=== PATIENT | male | born 1965 | race African-American/Black ===

== ENCOUNTER 2017-11-03 06:52 | Day surgery (SDC) | payer OTHER ==
[2017-11-02 12:39] VITALS: BMI 29.8
[2017-11-03 07:55] VITALS: BP 127/82; TEMP 97.6
--- NOTE | 2017-11-03 10:28 | RAD ---
LUMBAR SPINE TWO VIEWS: HISTORY: Status post laminectomy syndrome. COMPARISON: None. FINDINGS: Flexion and extension views of the lumbar spine are submitted for interpretation. There are bilatera l transpedicular screws at L4, L5, and S1. No perihardware lucency. There are prostheses at L4-L5 a nd L5-S1 levels. Vertebral body height is maintained. No significant malalignment or spondylolisthe sis in the flexion or extension views. IMPRESSION: Lumbar fusion changes, as above. POS: [facility]
--- NOTE | 2017-11-03 11:13 | RAD ---
LUMBAR MYELOGRAM: HISTORY: Status post laminectomy syndrome. COMPARISON: None. EXPOSURE: 0.6 minutes. 438.4 mGy*^m2. FINDINGS: Two-view mounter lumbar spine radiograph demonstrates 5 lumbar-type vertebral bodies. Bilateral transp edicular screws at L4, L5, and S1. No perihardware lucency. Prosthesis at L4-5 and L5-S1. No signi ficant spondylolisthesis. Successful lumbar puncture for intrathecal contrast administration. A total of 10 cc of Isovue 200M contrast was administered intrathecally. The patient tolerated the procedure well. No immediate or postprocedure complications. TECHNIQUE: Consent was obtained for a lumbar puncture for intrathecal contrast administration. The patient's ba ck was evaluated. The L3-L4 level was deemed appropriate. The skin was prepped and draped in steril e fashion. 1% Lidocaine, buffered with sodium bicarbonate, was used for local anesthesia. Under flu oroscopic guidance, a 22-gauge spinal needle was advanced into the CSF space. Via a short tubing cat heter, a total of 10 cc of Isovue 200M contrast was administered intrathecally. The patient tolerate d the procedure well. No immediate or postprocedure complications. IMPRESSION: Successful lumbar puncture for intrathecal contrast administration. POS: [facility]
--- NOTE | 2017-11-03 11:32 | CT ---
POST MYELOGRAM LUMBAR SPINE CT: HISTORY: Post laminectomy syndrome. COMPARISON: None. TECHNIQUE: Bilateral transpedicular screws at L4, L5, and S1. Disk prostheses at L4-L5 and at L5-S1. Vertebral body height is maintained. No fracture. No spondylolisthesis. No spondylolysis. Symmetric attenuation of the psoas muscles. The visualized solid organs have appropriate attenuation . No retroperitoneal mass, lymphadenopathy, or hematoma. The conus medullaris terminates at the inferior aspect of L1. On the coronal reformatted images, the sinus processes and transverse processes are intact. Bone gra ft material is noted at the level of lumbar fusion. T11-T12/T12-L1: No significant central canal stenosis. The neural foramina are patent. L1-L2: No significant central canal stenosis. The neural foramina are patent. L2-L3: No significant central canal stenosis. The neural foramina are patent. L3-L4: Generalized disk bulge, ligamentum flavum thickening, and facet hypertrophy result in mild ce ntral canal stenosis. Moderate bilateral foraminal narrowing due to disk material and posterior united keetoowah ent hypertrophy. L4-L5: Disk prosthesis. There appears to be a left-sided facetectomy. There is no high grade centr al canal stenosis. Mild bilateral foraminal narrowing. L5-S1: There is a disk prosthesis. A left facetectomy is noted. There is abnormal hypodensity, pre sumed to be soft tissue attenuation, in the right subarticular zone, which abuts and slightly displac es the traversing right S1 nerve root. Findings may represent residual disk material versus scar tis irais. The left subarticular zone is unremarkable. There is no significant stenosis of the thecal sac . There is some mass effect upon the posterior left thecal sac, which may be due to postoperative ch yaniv. The right neural foramen is patent. Moderate left foraminal narrowing. IMPRESSION: Postoperative changes and post fusion changes, as described above. There is some mass effect upon th e traversing right S1 nerve root. Findings may be due to disk material versus scar tissue. POS: [facility]
[2017-11-03] MEDS ORDERED: Iopamidol-M 200 41% 20 ML VIAL ONE (13:43)
== END 2017-11-03 10:10 | disposition home or self-care (01) ==
LOC: RAD 06:52
PROVIDERS: ATTEND Nurse Practitioner Family
PROC: B02BY0Z Computerized Tomography (CT Scan) of Spinal Cord using Other Contrast, Unenhanced and Enhanced (ICD-10-PCS; principal; 2017-11-03)
DX: M96.1 Postlaminectomy syndrome, not elsewhere classified (principal); M54.16 Radiculopathy, lumbar region; M99.83 Other biomechanical lesions of lumbar region; Z98.890 Other specified postprocedural states
CPT/HCPCS: 62304; 72100; 72132

== ENCOUNTER 2017-12-19 02:28 | Emergency (ER) | payer OTHER ==
[2017-12-19] MEDS ORDERED: Ketorolac Tromethamine 30 MG/ML VIAL ONE (06:41)
[2017-12-19] MEDS ORDERED: diphenhydrAMINE 50 MG/ML VIAL ONE (06:41)
[2017-12-19] MEDS ORDERED: Metoclopramide HCl 10 MG/2 ML VIAL ONE (06:41)
[2017-12-19] MEDS ORDERED: Acetaminophen 500 MG TAB ONE (06:41)
[2017-12-19 06:46] LABS: #Basophils 0.1 thou/uL (0.0-0.2); #Eosinphils 0.1 thou/uL (0.0-0.7); #Lymphocytes 2.3 thou/uL (1.20-3.40); #Monocytes 0.7 thou/uL (0.11-0.59); #Neutrophils 6.8 thou/uL (1.40-6.50); %Basophils 0.8 % (0.0-1.0); %Eosinophils 0.6 % (0.0-10.0); %Monocytes 7.1 % (0.0-10.0); %Neutrophils 68.4 % (42.0-75.0); Hemoglobin 17.9 g/dL (14.0-18.0); Mean Corpuscular HGB CONC 33.3 g/dL (32.0-36.0); Mean Corpuscular Hemoglobin 29.7 pg (27.0-31.0); Mean Corpuscular Volume 89.2 fL (78.0-98.0); Mean Platelet Volume 6.8 fL (7.4-10.4); Platelet Count 229 thou/uL (130-400); Red Blood Cell (RBC) Count 6.01 mill/uL (4.70-6.10)
[2017-12-19 06:55] LABS: INR-International Normal Ratio 0.9; Prothrombin Time 12.6 SEC (12.0-14.7)
[2017-12-19 07:03] LABS: Anion Gap 14 mmol/L (10-20); BUN (Urea Nitrogen) 15 mg/dL (8.9-20.6); Calc. Creatinine Clearance 0 mL/min (70-130); Calcium 9.8 mg/dL (7.8-10.44); Carbon Dioxide 25 mmol/L (22-29); Chloride 102 mmol/L (98-107); Estimated GFR-MDRD Greater than 90; Glucose 109 mg/dL (70-105); Potassium 4.1 mmol/L (3.5-5.1); Sodium 137 mmol/L (136-145)
--- NOTE | 2017-12-19 12:52 | CT ---
PRELIMINARY REPORT/[facility]/EMERGENTY AFTER-HOURS PROCEDURE CT Head Without Intravenous Contrast CLINICAL HISTORY: 52 years old, male; Pain; Headache; Headache not specified; Patient HX: M50 reports to ed C/O migrain e. Pt reported getting lumbar injections on 12/15/2017 and the gradually started to get the migraine. Pt reports the pain is on the sides and worse on the crown of his scalp, was tender to touch pt reported. Pt reports getting headaches or sick often. TECHNIQUE: Axial computed tomography images of the head/brain without intravenous contrast. COMPARISON: No relevant prior studies available. FINDINGS: Normal brain morphology. Baird-white matter differentiation is preserved. No intracranial hemorrhage or hydrocephalus. No mass, mass effect or midline shift. No effacement of the cortical sulci and basal cisterns. Orbits are unremarkable. Paranasal sinuses are clear. Mastoid air cells are clear. No acute fracture. Soft tissues unremarkable. IMPRESSION: No acute intracranial abnormality. Thank you for allowing us to participate in the care of your patient. Dictated and Authenticated by: Raman Patrick MD 12/19/2017 7:08 AM Central Time ([place] & [place]) FINAL REPORT EMERGENCY AFTER HOURS CT BRAIN: Date: 12/19/17 IMPRESSION: I agree with the preliminary interpretation given by Chhaya. No evidence for intracranial hemorrhage or mass effect. POS: [facility]
== END 2017-12-19 09:20 | disposition home or self-care (01) ==
LOC: ERS 02:28
DX: R51 Headache (principal); Z79.899 Other long term (current) drug therapy
CPT/HCPCS: 70450; 80048; 85025; 85610; 85652; 85730; 96365; 96366; 96375; J1200; J1885; J2765

== ENCOUNTER 2018-04-20 09:00 | Inpatient (IN) | payer OTHER ==
[2018-04-20 09:27] VITALS: BMI 28.8
[2018-05-09] MEDS ORDERED: CEFAZOLIN 2 GM/50 ML BAG ONE (13:04)
[2018-05-09] MEDS ORDERED: Fentanyl 100 MCG/2 ML VIAL ONE ×3 (13:53→16:52)
[2018-05-09] MEDS ORDERED: Midazolam HCl 2 mg/2 ml Vial ONE (13:53)
[2018-05-09] MEDS ORDERED: Sodium Chloride 0.9% 10 ML ONE (14:03)
[2018-05-09] MEDS ORDERED: PROPOFOL 200 MG/20 ML VIAL ONE (14:22)
[2018-05-09] MEDS ORDERED: Dexamethasone 20 MG/5 ML VIAL ONE (14:22)
[2018-05-09] MEDS ORDERED: Glycopyrrolate 0.2 MG/ML 5 ML SYRINGE ONE (14:22)
[2018-05-09] MEDS ORDERED: Lidocaine 1% PF 5 ML VIAL ONE (14:22)
[2018-05-09] MEDS ORDERED: Ketorolac Tromethamine 30 MG/ML VIAL ONE (14:22)
[2018-05-09] MEDS ORDERED: Ondansetron PF 4 MG/2 ML Vial ONE (14:22)
[2018-05-09] MEDS ORDERED: diphenhydrAMINE 50 MG/ML VIAL IVP PRN (16:31)
[2018-05-09] MEDS ORDERED: tiZANidine HCl 4 MG TAB PO PRN (16:31)
[2018-05-09] MEDS ORDERED: Morphine 4 MG/ML VIAL SLOW IVP PRN (16:31)
[2018-05-09] MEDS ORDERED: Ondansetron PF 4 MG/2 ML Vial IM PRN (16:31)
[2018-05-09] MEDS ORDERED: Mag-Al 1200 mg/1200 mg/30 ML UDCUP PO PRN (16:31)
[2018-05-09] MEDS ORDERED: Promethazine 25 MG TAB PO PRN (16:31)
[2018-05-09] MEDS ORDERED: Promethazine HCl 12.5 MG SUPP PR PRN (16:31)
[2018-05-09] MEDS ORDERED: Promethazine HCl 25 MG/ML VIAL IM PRN ×2 (16:31→16:57)
[2018-05-09] MEDS ORDERED: traMADol HCl 50 MG TAB PO PRN ×2 (16:31)
[2018-05-09] MEDS ORDERED: HYDROcodone/Acetaminophen 10/325 mg Tablet PO PRN (16:31)
[2018-05-09] MEDS ORDERED: Milk Of Magnesia 30 ML UDCUP PO PRN (16:31)
[2018-05-09] MEDS ORDERED: diphenhydrAMINE 25 MG CAP PO PRN (16:31)
[2018-05-09] MEDS ORDERED: Morphine 2 MG/ML SYRINGE SLOW IVP PRN (16:45)
[2018-05-09] MEDS ORDERED: Promethazine HCl 25 MG/ML VIAL SLOW IVP PRN (16:57)
[2018-05-09] MEDS ORDERED: Ondansetron HCl/PF 4 MG/2 ML Vial IVP PRN (16:57)
[2018-05-09] MEDS: HYDROcodone/Acetaminophen 10/325 mg Tablet PO PRN (20:23)
[2018-05-09] MEDS: Sodium Chloride 0.9% 1,000 ML IV SCH (21:46)
[2018-05-09] MEDS: CEFAZOLIN 2 GM/50 ML BAG IVPB SCH (22:03)
--- NOTE | 2018-05-09 23:00 | OP ---
DATE OF PROCEDURE: 05/09/2018 HYDROGENATION STILL OPERATOR: GIULIA Schulte PROCEDURE PERFORMED: L4 through S1 exploration of fusion, posterolateral arthrodesis, cancellous bone chips, BMP and DESCRIPTION OF PROCEDURE: The patient was brought to the operating room and intubated. He was rolled in the prone position on gel flat chest rolls. The previous incision reopened and the prior fusion was explored. There was no definitive evidence of bony fusion. We prepared the lateral and posterolateral surfaces of the posterolateral arthrodesis bilaterally and then placed a combination of BMP on Gelfoam pledgets with cancellous bone chips over these surfaces for the purpose of future arthrodesis. It was extensively irrigated prior to the placement of the BMP. Vancomycin powder was applied and the wound was then closed in anatomic layers. Job ID: [id number]
[2018-05-10] MEDS: HYDROcodone/Acetaminophen 10/325 mg Tablet PO PRN ×2 (00:23→04:38)
[2018-05-10] MEDS: Sodium Chloride 0.9% 1,000 ML IV SCH (04:41)
[2018-05-10] MEDS: CEFAZOLIN 2 GM/50 ML BAG IVPB SCH (06:15)
[2018-05-10 08:20] VITALS: BP 135/71; TEMP 98.5
--- NOTE | 2018-05-11 05:14 | DIS ---
DATE OF ADMISSION: 05/09/2018 DATE OF DISCHARGE: 05/10/2018 HOSPITAL COURSE: The patient is a 53-year-old male with a history of L4-S1 fusion with nonunion. He underwent revision of lumbar fusion with BNP on 05/09/2018 without complications. Post surgery, he was transitioned to the floor, where his pain was well controlled with p.o. medications, he is tolerating regular diet, and voiding appropriately. He has been ambulatory throughout the department without difficulty. I have seen the patient at the bedside this morning. He is awake and alert, in no acute distress. Free active range of motion of all extremities. No focal motor weakness. No reflex asymmetry. Dressing is dry. We will plan to dismiss the patient to home. I have discussed home care and precautions. The patient has been provided with scripts for [place], Zanaflex, and Keflex. I will follow up with the patient in 2 weeks. Job ID: [id number]
== END 2018-05-10 10:15 | disposition home or self-care (01) | DRG 460 ==
LOC: SURG A 05-09 07:56 → 3SE 05-09 18:31
PROVIDERS: ADMIT Neurological Surgery; ATTEND Neurological Surgery
PROC: 0SG3071 Fusion of Lumbosacral Joint with Autologous Tissue Substitute, Posterior Approach, Posterior Column, Open Approach (ICD-10-PCS; principal; 2018-05-09)
DX: M54.17 Radiculopathy, lumbosacral region (principal); Z79.899 Other long term (current) drug therapy
CPT/HCPCS: 76001; J1100; J1200; J1885; J2001; J2250; J2405; J2704; J3010; J3370; J3490

== ENCOUNTER 2018-04-20 09:06 | Outpatient (CLI) | payer OTHER ==
[2018-04-20 11:06] LABS: #Basophils 0.1 thou/uL (0.0-0.2); #Eosinphils 0.1 thou/uL (0.0-0.7); #Lymphocytes 2.2 thou/uL (1.20-3.40); #Monocytes 0.5 thou/uL (0.11-0.59); #Neutrophils 3.3 thou/uL (1.40-6.50); %Basophils 1.8 % (0.0-1.0); %Eosinophils 1.5 % (0.0-10.0); %Lymphocytes 35.4 % (21.0-51.0); %Monocytes 7.8 % (0.0-10.0); %Neutrophils 53.6 % (42.0-75.0); Hemoglobin 16.4 g/dL (14.0-18.0); Mean Corpuscular HGB CONC 31.6 g/dL (32.0-36.0); Mean Corpuscular Hemoglobin 29.3 pg (27.0-31.0); Mean Corpuscular Volume 92.7 fL (78.0-98.0); Mean Platelet Volume 7.5 fL (7.4-10.4); Platelet Count 260 thou/uL (130-400); RBC Distribution Width 12.3 % (11.5-14.5); Red Blood Cell (RBC) Count 5.58 mill/uL (4.70-6.10); White Blood Cell (WBC) Count 6.1 thou/uL (4.8-10.8)
[2018-04-20 11:23] LABS: Anion Gap 9 mmol/L (10-20); BUN (Urea Nitrogen) 14 mg/dL (8.4-25.7); Calc. Creatinine Clearance 0 mL/min (70-130); Calcium 9.1 mg/dL (7.8-10.44); Carbon Dioxide 28 mmol/L (22-29); Chloride 105 mmol/L (98-107); Estimated GFR-MDRD 83; Glucose 96 mg/dL (70-105); Potassium 4.2 mmol/L (3.5-5.1); Sodium 138 mmol/L (136-145)
--- NOTE | 2018-04-23 10:29 | EKG ---
Test Reason : Blood Pressure : / mmHG Vent. Rate : 057 BPM Atrial Rate : 057 BPM P-R Int : 154 ms QRS Dur : 090 ms QT Int : 402 ms P-R-T Axes : 049 118 047 degrees QTc Int : 391 ms Sinus bradycardia Right axis deviation Abnormal ECG No previous ECGs available Confirmed by DR. Leny DEJESUS ([id number]) on 04/23/2018 10:29:09 AM Referred By: ARIE Confirmed By:DR. Leny DEJESUS
== END 2018-04-20 09:07 | disposition home or self-care (01) ==
LOC: LABBT 09:06
PROVIDERS: ATTEND Neurological Surgery
DX: Z01.812 Encounter for preprocedural laboratory examination (principal); M54.16 Radiculopathy, lumbar region
CPT/HCPCS: 80048; 85025; 93005; 93010

== ENCOUNTER 2018-05-24 15:53 | Outpatient (CLI) | payer OTHER ==
--- NOTE | 2018-05-24 17:21 | RAD ---
LUMBAR SPINE THREE VIEWS: HISTORY: M54.16, lumbar spine pain. COMPARISON: Spine radiograph from 11/03/2017. FINDINGS: Similar appearance with posterior spinal fusion hardware at L4-S1 with diskectomy changes. There are surgical megan along the midline abdomen. No acute superimposed fracture or malalignment. The paraspinal soft tissues are unremarkable. IMPRESSION: Satisfactory postoperative appearance. No hardware migration. POS: [facility]
== END 2018-05-24 15:54 | disposition home or self-care (01) ==
LOC: TBSIIMAG 15:53
PROVIDERS: ATTEND Neurological Surgery
DX: M54.16 Radiculopathy, lumbar region (principal); Z98.1 Arthrodesis status
CPT/HCPCS: 72100

== ENCOUNTER 2018-07-06 13:39 | Outpatient (CLI) | payer OTHER ==
--- NOTE | 2018-07-06 14:29 | RAD ---
LUMBAR SPINE SERIES TWO VIEWS: History: Low back pain. Post op. Comparison: 05-24-18 FINDINGS: Bilateral pedicle screws are noted at the L4, L5 and S1 levels. Markers of disc implants are within t he confines of the disc levels. IMPRESSION: Stable post op change. POS: [facility]
== END 2018-07-06 13:40 | disposition home or self-care (01) ==
LOC: TBSIIMAG 13:39
PROVIDERS: ATTEND Neurological Surgery
DX: M54.5 Low back pain (principal); Z98.890 Other specified postprocedural states
CPT/HCPCS: 72100

== ENCOUNTER 2018-09-01 12:58 | Outpatient (CLI) | payer OTHER ==
--- NOTE | 2018-09-01 13:36 | RAD ---
LUMBAR SPINE TWO VIEWS: History: Lumbar radiculopathy. Post op follow up. Comparison: 07-06-18 FINDINGS: Pedicles screws and rods again noted transfixing L4 at L5 and S1. Interbody implants at these levels again noted. The hardware and implants are unchanged in position from prior study. Posterior alignmen t is preserved and unchanged. IMPRESSION: Post-operative findings appear stable. POS: [facility]
== END 2018-09-01 12:59 | disposition home or self-care (01) ==
LOC: TBSIIMAG 12:58
PROVIDERS: ATTEND Neurological Surgery
DX: M54.16 Radiculopathy, lumbar region (principal); Z98.890 Other specified postprocedural states
CPT/HCPCS: 72100

== ENCOUNTER 2018-10-26 11:27 | Day surgery (SDC) | payer OTHER ==
[2018-10-25 10:48] VITALS: BMI 29.2
[2018-10-26] MEDS ORDERED: Glycopyrrolate 0.2 MG/ML 5 ML SYRINGE ONE (14:48)
[2018-10-26] MEDS ORDERED: diphenhydrAMINE 50 MG/ML VIAL ONE (14:56)
--- NOTE | 2018-10-26 15:20 | RAD ---
PORTABLE CHEST ONE VIEW: 10/26/2018 2:59 p.m. HISTORY: Aspiration. FINDINGS: The heart size is normal. The lungs are well expanded without focal areas of consolidation, pneumoth orax, drew pulmonary edema, or pleural effusions. IMPRESSION: No acute process. POS: [facility]
[2018-10-26] MEDS ORDERED: PROPOFOL 200 MG/20 ML VIAL ONE (15:23)
--- NOTE | 2018-10-26 21:30 | OP ---
DATE OF PROCEDURE: 10/26/2018 PROCEDURE PERFORMED: Colonoscopy with biopsy. PREMEDICATION: Given by Anesthesiology Department. PREPROCEDURE DIAGNOSIS: Colon screening. POSTPROCEDURE DIAGNOSES: 1. Mild patchy colitis throughout the colon. 2. Otherwise normal colon exam. DESCRIPTION OF PROCEDURE: Written consents were obtained prior to procedure. After adequate sedation, rectal exam performed was normal. The endoscope was advanced to the cecum. The quality of the bowel prep was good. There was patchy mucosal erythema and mild inflammation noted throughout the colon. There was no discrete ulcer, mass, or any other lesion. The cecum, ascending colon, hepatic flexure, transverse colon, splenic flexure, descending colon, and rectosigmoid colon appeared normal otherwise. Biopsies obtained from the right and the left colon. Retroflexion in the rectal vault was normal. The patient tolerated the procedure well. ASSESSMENT: 1. Mild patchy colitis throughout the colon. 2. Otherwise normal colon exam. PLAN: 1. Await biopsy results. 2. Repeat colon screening in 10 years. Job ID: [id number]
== END 2018-10-26 16:35 | disposition home or self-care (01) ==
LOC: SDC 11:27
PROVIDERS: ATTEND Internal Medicine Gastroenterology
PROC: 0DBF8ZX Excision of Right Large Intestine, Via Natural or Artificial Opening Endoscopic, Diagnostic (ICD-10-PCS; principal; 2018-10-26)
PROC: 0DBG8ZX Excision of Left Large Intestine, Via Natural or Artificial Opening Endoscopic, Diagnostic (ICD-10-PCS; principal; 2018-10-26)
DX: Z12.11 Encounter for screening for malignant neoplasm of colon (principal); K52.9 Noninfective gastroenteritis and colitis, unspecified; M96.1 Postlaminectomy syndrome, not elsewhere classified; Z79.899 Other long term (current) drug therapy; Z98.1 Arthrodesis status
CPT/HCPCS: 71045; 88305; J1200; J2704

== ENCOUNTER 2018-11-08 13:51 | Outpatient (CLI) | payer OTHER ==
--- NOTE | 2018-11-08 15:16 | CT ---
Exam: ABDOMEN CT WITH AND WITHOUT CONTRAST PELVIC CT WITH AND WITHOUT CONTRAST: HISTORY: Pain and burning with urination. Hematuria. COMPARISON: None. TECHNIQUE: Abdomen and pelvic CT performed with and without intravenous contrast administration. Ref ormatted images are submitted for interpretation. FINDINGS: ABDOMEN CT: Linear opacities in the lung bases are presumed to be due to subsegmental atelectasis or scar. Normal heart size. No significant pericardial fluid. Unremarkable aorta. Grossly unremarkable portal vein. Unremarkable gallbladder. Liver, spleen, pancreas and adrenal glands have appropriate attenuation and enhancement. No gastrohepatic, retrocrural, or periportal lymphadenopathy. No mesenteric mass, lymphadenopathy, free air, or free fluid. Limited evaluation of the alimentary canal by the lack of contrast. No evidence of small bowel obstru ction. Ileocecal junction is normal. Normal caliber air filled appendix. Scattered fecal material in a nondistended, nondilated colon. Bilaterally, no hydronephrosis, nephrolithiasis, or perinephric fat stranding. There is symmetric enh ancement of the kidneys. Well-circumscribed hypodensity in the anterior right renal cortex measures 1.8 x 1.4 cm with an attenuation coefficient of 11 Hounsfield units on the noncontrast sequence, 24 H ounsfield units on the arterial phase sequence and 17 Hounsfield units on the excretory phase. Suggesting a slightly complex cyst. No solid enhancing masses in either renal cortex. Symmetric excre tion into normal caliber intrarenal collecting systems. Bilateral ureters have a normal caliber. No hydroureter, periureteral fat stranding, or ureterolithiasis CT PELVIS: Contrast opacifies the dependent portion of the urinary bladder. Grossly no bladder abnormality. No p elvic mass, lymphadenopathy, free air, or free fluid. No lytic or blastic lesions in the osseous structures. Lumbar fusion hardware is noted from L4 throug h S1 without perihardware lucency. IMPRESSION: 1. Bilaterally, no obstructive uropathy. Symmetric appearance of the intra and extrarenal collecting systems. 2. Slightly complex cyst in the right kidney. 3. Normal caliber appendix. Transcribed Date/Time: 11/08/2018 3:22 PM
== END 2018-11-08 13:52 | disposition home or self-care (01) ==
LOC: BICCT 13:51
PROVIDERS: ATTEND Urology
DX: R31.29 Other microscopic hematuria (principal); N28.1 Cyst of kidney, acquired
CPT/HCPCS: 74178

== ENCOUNTER 2018-11-29 12:44 | Outpatient (CLI) | payer OTHER ==
--- NOTE | 2018-11-29 13:03 | RAD ---
XR Lumbar Spine 2 Or 3 View HISTORY: Follow-up surgery COMPARISON: 09/01/2018 study. FINDINGS: Bilateral pedicle screws at L4, L5 and S1 are again noted. Markers from the disc implants a re within the confines of the disc level. No too hardware lucency. IMPRESSION: Stable exam.
== END 2018-11-29 12:45 | disposition home or self-care (01) ==
LOC: TBSIIMAG 12:44
PROVIDERS: ATTEND Neurological Surgery
DX: M54.16 Radiculopathy, lumbar region (principal)
CPT/HCPCS: 72100

== ENCOUNTER 2018-12-09 07:34 | Outpatient (CLI) | payer OTHER ==
--- NOTE | 2018-12-09 08:48 | CT ---
LUMBAR SPINE CT NONCONTRAST: Date: 12/09/18 INDICATION: Lumbar radiculopathy. FINDINGS: There is posterior metallic fusion spanning L4 through S1 with bilateral vertebral interconnecting ro ds and bilateral pedicle screws. Intervening disc space prosthesis at L4-5 and L5-S1 with adjacent di sc space hyperdensity present. Vertebral body heights and disc space heights are otherwise relatively well preserved. There is no significant malalignment. Multilevel bilateral mild to moderate facet os teoarthritis is present. At the L1-2, L2-3, and L3-4 levels, there are mild, concentric disc bulges. There is no significant resultant central canal stenosis at L1-2. L2-3 level reveals mild effacement of the ventral thecal sac, and L3-4 level reveals moderate central canal stenosis. At the L1-2, L2-3, and L3-4 levels, no high grade osseous compromise of the neural foramina. The postoperative L4-5 level is limited by streak artifact. There is at least moderate central canal stenosis. The left foramen is obscured by streak artifact. Added density of this region likely relate s to epidural fibrosis from prior surgery. No high grade right foraminal stenosis. At the postoperative L5-S1 level, there is marked limitation due to streak artifact. Degree of centra l canal and left foraminal stenosis is difficult to discern, although there is added density in this region favoring postoperative epidural fibrosis, although a component of associated disc material can not be excluded. There is mild narrowing of the right neural foramen. IMPRESSION: Postoperative lumbar spine as above. Marked limitation of the operative L4-5 and L5-S1 levels with a dded density demonstrated asymmetric to the left, some of which likely relates to postoperative epidu ral fibrosis, although a component of superimposed disc material cannot be excluded. In attempt for f urther characterization, lumbar myelogram may be performed as clinically necessary. POS: [facility]
== END 2018-12-09 07:35 | disposition home or self-care (01) ==
LOC: BICCT 07:34
PROVIDERS: ATTEND Neurological Surgery
DX: M54.16 Radiculopathy, lumbar region (principal); Z98.890 Other specified postprocedural states; G96.19 Other disorders of meninges, not elsewhere classified
CPT/HCPCS: 72131

== ENCOUNTER 2019-03-29 07:04 | Day surgery (SDC) | payer OTHER ==
[2019-03-28 15:19] VITALS: BMI 29.4
[~2019-03-29 07:04] MED LIST: FLU VACC QS2019-20(6MOS UP)/PF 60 MCG/0.5 ML SYRINGE IM ONE
[2019-03-29 08:06] VITALS: BP 107/76; TEMP 98.1
--- NOTE | 2019-03-29 09:07 | RAD ---
Myelogram of Lumbar spine CLINICAL HISTORY: Pain PROCEDURE: Informed consent was obtained. [facility] imaging was performed. Patient was placed in a prone position and the skin of the low back was prepped and draped in a standard sterile fashion. Topical anesthesia was achieved with buffered 1% lidocaine. 22-gauge spinal needle was then advanced uneventf ully into the thecal sac from a posterior para midline approach at the left L3-4 level. 8 cc of radiopaque contrast was instilled under low pressure into the thecal sac, upon return of clear colorl ess CSF the needle hub. Imaging was stored for documentation. Needle was removed. Patient tolerated the procedure well, without complication evident. Patient was then transferred to CT to undergo subsequent CT myelogram imaging. Reference separate lilly reddy(s) for additional details. FINDINGS: Intraoperative imaging reveals a needle overlying the lumbar spinal canal, with subsequent instillation of radiopaque contrast within the thecal sac. Fluoroscopy data:0.2 minutes, 19 mcg/sq m IMPRESSION: Technically successful myelogram, as above.
--- NOTE | 2019-03-29 11:02 | CT ---
POST MYELOGRAM LUMBAR SPINE CT: HISTORY: Lumbar fusion. Radiculopathy. COMPARISON: 11/03/2017 CORRELATION: Noncontrast CT of the lumbar spine from 12/09/2018. FINDINGS: Five lumbar type vertebrae. Lumbar spine vertebral body height is maintained. No fracture. No spondyl olisthesis or spondylolysis. Redemonstration of bilateral transpedicular screws at L4, L5 and S1. No perihardware lucency. Redemon stration of disc prostheses at L4-L5 and L5-S1. Visualized solid organs do not demonstrate any acute abnormality. Hypodensity in the right renal sosa ex has an attenuation coefficient of 8 Hounsfield units and is compatible with a 1.5 cm cyst. Visualized alimentary canal is unremarkable. The conus medullaris terminates at the mid aspect of L1. T11-T12 and T12-L1: No significant central canal stenosis or significant neural foraminal narrowing. L1-L2: No significant central canal stenosis. Neural foramina are patent. L2-L3: No significant central canal stenosis. Minimal ligamentum flavum thickening. Neural foramina a re patent. L3-L4: Broad-based disc bulge, ligamentum flavum thickening and facet hypertrophy result in stable mi ld central canal stenosis. Moderate bilateral foraminal narrowing predominantly due to disc material. L4-L5: Disc prosthesis. Redemonstration of a left facetectomy. There does appear to be some increased abnormal soft tissue density along the anterior epidural space. There is encroachment upon the right subarticular zone. There appears be partial obscuration traversing right L5 nerve root. Left sanchez barticular zone is unremarkable. Overall there is mild central canal stenosis. Moderate right and mild left neural foraminal narrowing. When compared to the previous examination, the degree of forami nal stenosis appears stable. L5-S1: There is a disc prosthesis. There is a left hemilaminotomy defect and a left facetectomy defec t. There appears to be effacement of the right subarticular zone with obscuration the traversing right S1 nerve root. Left subarticular zone is unremarkable. Stable mass effect upon the posterior le ft aspect of the thecal sac. There is a stable appearance of the thecal sac. Moderate bilateral neural foraminal narrowing. IMPRESSION: 1. Stable lumbar fusion from L4 through S1. 2. Stable neural foraminal narrowing at L4-L5 and L5-S1. 3. Stable abnormal soft tissue density in the right subarticular zone at L5-S1 with obscuration trave rsing the right S1 nerve root. Findings may represent residual disc material versus scar tissue. 4. Partial obscuration traversing right L5 nerve root secondary to abnormal soft tissue density. Effa cement of the right subarticular zone was not evident on the previous examination. Findings may represent scar tissue formation. Pre and post contrast lumbar spine MRI may be beneficial. CODE T Transcribed Date/Time: 03/29/2019 11:44 AM
== END 2019-03-29 09:50 | disposition home or self-care (01) ==
LOC: RAD 07:04
PROVIDERS: ATTEND Specialist
PROC: B01B1ZZ Fluoroscopy of Spinal Cord using Low Osmolar Contrast (ICD-10-PCS; principal; 2019-03-29)
DX: M96.1 Postlaminectomy syndrome, not elsewhere classified (principal); M54.16 Radiculopathy, lumbar region; M48.061 Spinal stenosis, lumbar region without neurogenic claudication; M48.07 Spinal stenosis, lumbosacral region; Z79.899 Other long term (current) drug therapy; Z98.1 Arthrodesis status
CPT/HCPCS: 62304; 72132; 90471; 90686; G0008

== ENCOUNTER 2019-06-12 07:18 | Outpatient (CLI) | payer OTHER ==
[2019-06-12 12:10] LABS: Hemoglobin 16.6 g/dL (14.0-18.0); Mean Corpuscular HGB CONC 31.7 g/dL (32.0-36.0); Mean Corpuscular Volume 91.7 fL (78.0-98.0); Mean Platelet Volume 7.6 fL (7.4-10.4); Platelet Count 265 thou/uL (130-400); RBC Distribution Width 12.3 % (11.5-14.5); Red Blood Cell (RBC) Count 5.71 mill/uL (4.70-6.10); White Blood Cell (WBC) Count 10.9 thou/uL (4.8-10.8)
[2019-06-12 12:29] LABS: Anion Gap 10 mmol/L (10-20); BUN (Urea Nitrogen) 13 mg/dL (8.4-25.7); Calc. Creatinine Clearance 0 mL/min (70-130); Calcium 9.2 mg/dL (7.8-10.44); Carbon Dioxide 27 mmol/L (22-29); Chloride 107 mmol/L (98-107); Estimated GFR-MDRD Greater than 90; Glucose 104 mg/dL (70-105); Potassium 4.1 mmol/L (3.5-5.1); Sodium 140 mmol/L (136-145)
--- NOTE | 2019-06-13 11:08 | EKG ---
Test Reason : Blood Pressure : / mmHG Vent. Rate : 074 BPM Atrial Rate : 074 BPM P-R Int : 136 ms QRS Dur : 088 ms QT Int : 376 ms P-R-T Axes : 046 115 016 degrees QTc Int : 417 ms Normal sinus rhythm Left posterior fascicular block Cannot rule out Anterior infarct , age undetermined Abnormal ECG When compared with ECG of 20-APR-2018 10:01, No significant change was found Confirmed by DR. Leny DEJESUS ([id number]) on 06/13/2019 11:08:01 AM Referred By: ARIE Confirmed By:DR. Leny DEJESUS
== END 2019-06-12 07:19 | disposition home or self-care (01) ==
LOC: LABBT 07:18
PROVIDERS: ATTEND Neurological Surgery
DX: Z01.818 Encounter for other preprocedural examination (principal); M43.16 Spondylolisthesis, lumbar region
CPT/HCPCS: 80048; 85027; 93005; 93010

== ENCOUNTER 2019-06-12 09:00 | Inpatient (IN) | payer OTHER ==
[2019-06-12 10:56] VITALS: BMI 27.8
[2019-06-14] MEDS ORDERED: Sodium Chloride 0.9% 0 ML ONE (06:36)
[2019-06-14] MEDS ORDERED: Fentanyl 250 MCG/5 ML VIAL ONE (06:46)
[2019-06-14] MEDS ORDERED: Midazolam HCl 2 mg/2 ml Vial ONE (06:46)
[2019-06-14] MEDS ORDERED: Fentanyl 100 MCG/2 ML VIAL ONE ×3 (09:30→10:14)
--- NOTE | 2019-06-14 09:37 | OP ---
DATE OF PROCEDURE: 06/14/2019 WAFER SLICER: Rachel Sullivan PA-C. PROCEDURE PERFORMED: Exploration of spinal fusion L4-S1, removal of hardware L4-S1, posterolateral arthrodesis, BMP and cancellous bone chips, L4-S1. DESCRIPTION OF PROCEDURE: The patient was brought to the operating room and intubated. He was rolled in a prone position on gel-filled chest rolls. The previous incision was reopened and the prior instrumentation was identified. The nuts, rods and screws were removed. We explored the spinal fusion. It was impossible to tell whether it was solid from this approach. We elected to prepare the posterolateral surfaces for the purpose of arthrodesis and placed a combination of BMP and cancellous bone chips over the lateral and posterolateral surfaces for fusion. Prior to placing the BMP, the wound had been extensively irrigated and MAC hemostasis was secured. Vancomycin powder was then applied and the wound was closed in anatomic layers. Job ID: [id number]
[2019-06-14] MEDS ORDERED: Ondansetron PF 4 MG/2 ML Vial ONE (09:58)
[2019-06-14] MEDS ORDERED: PHENYLEPHRINE-NS 100 MCG/ML 10 ML SYRINGE ONE (09:58)
[2019-06-14] MEDS ORDERED: ePHEDrine/0.9% NaCl/PF SYRINGE 50 mg/10 ml ONE (09:58)
[2019-06-14] MEDS ORDERED: Glycopyrrolate 0.2 MG/ML 5 ML SYRINGE ONE (09:58)
[2019-06-14] MEDS ORDERED: Dexamethasone 20 MG/5 ML VIAL ONE (09:58)
[2019-06-14] MEDS ORDERED: PROPOFOL 200 MG/20 ML VIAL ONE (09:58)
[2019-06-14] MEDS ORDERED: Rocuronium Bromide 10 MG/ML (10ML VIAL) ONE (09:58)
[2019-06-14] MEDS ORDERED: Lidocaine 1% PF 5 ML VIAL ONE (09:58)
[2019-06-14] MEDS ORDERED: HYDROcodone/Acetaminophen 10/325 mg Tablet ONE (12:18)
--- NOTE | 2019-06-15 15:36 | DIS ---
DATE OF ADMISSION: 06/14/2019 DATE OF DISCHARGE: 06/14/2019 The patient is a 54-year-old male, known to us for evaluation of his ongoing back pain. He had prior L4 through S1 fusion years ago in [place]. We revised this fusion last year, but the patient has continued to have ongoing back pain, so we decided on removal of hardware. The patient underwent exploration of his lumbar spinal fusion and removal of his hardware from L4 through S1 on 06/14/2019. Following the surgery, he was transitioned to Day Stay, where his pain was well controlled with p.o. medications, he was tolerating a regular diet and voiding appropriately. He ambulated in the department without any difficulty. We dismissed to home the day of his surgery. I discussed home care and precautions and we will follow up with the patient in 2 weeks. Pain management is managing his home medications. Job ID: [id number]
== END 2019-06-14 14:30 | disposition home or self-care (01) | DRG 460 ==
LOC: EEVIPCON 06-14 06:11 → SURG A 06-14 06:11
PROVIDERS: ADMIT Neurological Surgery; ATTEND Neurological Surgery
PROC: 0QP004Z Removal of Internal Fixation Device from Lumbar Vertebra, Open Approach (ICD-10-PCS; principal; 2019-06-14)
PROC: 0SG00K1 Fusion of Lumbar Vertebral Joint with Nonautologous Tissue Substitute, Posterior Approach, Posterior Column, Open Approach (ICD-10-PCS; 2019-06-14)
PROC: 3E0U0GB Introduction of Recombinant Bone Morphogenetic Protein into Joints, Open Approach (ICD-10-PCS; 2019-06-14)
PROC: 0SG30K1 Fusion of Lumbosacral Joint with Nonautologous Tissue Substitute, Posterior Approach, Posterior Column, Open Approach (ICD-10-PCS; 2019-06-14)
DX: M43.16 Spondylolisthesis, lumbar region (principal); Z98.1 Arthrodesis status; Z98.890 Other specified postprocedural states; E11.9 Type 2 diabetes mellitus without complications; Z87.442 Personal history of urinary calculi; F17.210 Nicotine dependence, cigarettes, uncomplicated
CPT/HCPCS: 76000; 80048; 85027; 93005; C1713; J0690; J1100; J2001; J2250; J2405; J2704; J3010; J3370; J3490

== ENCOUNTER 2019-06-29 09:19 | Outpatient (CLI) | payer OTHER ==
--- NOTE | 2019-06-29 11:04 | RAD ---
LUMBAR SPINE TWO VIEWS: HISTORY: Spondylolisthesis of the lumbar region. Postop followup. COMPARISON: 11/29/2018 FINDINGS: The pedicle screws and rods noted on the prior exam have been removed. Interbody implants at L4-L5 an d at L5-S1 are seen and appear adequately positioned. Posterior alignment is preserved. Facet hypertr ophy is noted. IMPRESSION: Postoperative changes at L4-L5 and at L5-S1. Posterior alignment is maintained. POS: [facility]
== END 2019-06-29 09:20 | disposition home or self-care (01) ==
LOC: TBSIIMAG 09:19
PROVIDERS: ATTEND Neurological Surgery
DX: M43.16 Spondylolisthesis, lumbar region (principal); Z98.890 Other specified postprocedural states
CPT/HCPCS: 72100

== ENCOUNTER 2020-02-20 09:05 | Emergency (ER) | payer OTHER ==
[2020-02-20 16:41] LABS: SARS-CoV-2 MS2 Positive; SARS-CoV-2 N Gene Negative; SARS-CoV-2 S Gene Negative; SARS-CoV-2 by NAA Not Detected (NotDetected); SARS-CoV-2 orf1ab Negative
== END 2020-02-20 09:49 | disposition home or self-care (01) ==
LOC: ERS 09:05
DX: R50.9 Fever, unspecified (principal); R19.7 Diarrhea, unspecified; Z20.828 Contact with and (suspected) exposure to other viral communicable diseases; E78.5 Hyperlipidemia, unspecified
CPT/HCPCS: 87635; 99284; U0003

== ENCOUNTER 2020-04-20 00:01 | Emergency (ER) | payer OTHER ==
[2020-04-20] MEDS ORDERED: HYDROmorphone 0.5 MG/0.5 ML SYRINGE ONE (03:33)
[2020-04-20] MEDS ORDERED: Ondansetron ODT 4 MG TAB ONE (03:34)
== END 2020-04-20 03:55 | disposition home or self-care (01) ==
LOC: ERS 00:01
DX: M54.5 Low back pain (principal); E78.5 Hyperlipidemia, unspecified; V89.2XXA Person injured in unspecified motor-vehicle accident, traffic, initial encounter
CPT/HCPCS: 96372; 99283; J1170; Q0162

== ENCOUNTER 2020-04-22 11:07 | Outpatient (CLI) | payer OTHER ==
--- NOTE | 2020-04-22 11:55 | RAD ---
EXAM: XR Thoracolumbar 2 View Spot DATE: 04/22/2020 11:40 AM INDICATION: History of prior laminectomy and fall COMPARISON: June 29, 2019 radiographs of the lumbar spine FINDING: There is stable intervertebral disc cages at L4-5 and L5-S1. The instrumentation projects i n the expected position. Spinal alignment is within normal limits. Vertebral body heights are preserved. Visualized bowel gas pattern is unobstructed. IMPRESSION: Stable postoperative lumbar spine.
--- NOTE | 2020-04-22 12:09 | RAD ---
LUMBAR SPINE 4 VIEWS: HISTORY: Post laminectomy. FINDINGS: Vertebral bodies maintain height and alignment in the lateral view. Interbody implants at L4-5 and L 5-S1 appear adequately positioned. No listhesis. No significant change with flexion or extension. IMPRESSION: Postoperative changes at L4-5 and L5-S1. Alignment is normally maintained. POS: [facility]
== END 2020-04-22 11:08 | disposition home or self-care (01) ==
LOC: BICRAD 11:07
PROVIDERS: ATTEND Nurse Practitioner Family
DX: M96.1 Postlaminectomy syndrome, not elsewhere classified (principal); Z98.890 Other specified postprocedural states
CPT/HCPCS: 72080; 72110

== ENCOUNTER 2020-05-20 12:17 | Outpatient (CLI) | payer OTHER ==
[~2020-05-20 12:17] MED LIST changes: -FLU VACC QS2019-20(6MOS UP)/PF 60 MCG/0.5 ML SYRINGE IM ONE; +Magnevist 469MG/ML 20 ML VIAL ONE
--- NOTE | 2020-05-20 15:27 | MRI ---
MR the lumbar spine with and without contrast INDICATION: Postlaminectomy syndrome COMPARISON: CT lumbar myelogram dated March 29, 2019 TECHNIQUE: Multiplanar multisequence MR images were obtained of lumbar spine with and without IV cont rast. Contrast: 18 cc of MultiHance. FINDINGS: Bone marrow: There are partial laminotomies involving the L4-5 and L5-S1 intervertebral level. There are intervertebral disc cage is seen at L4-5 and L5-S1 that appears stable. Previously seen pedicle screws at L4-S1 have been removed along with their interconnecting cables. Distal spinal cord and conus: Normal. Conus is seen to terminate at the L1 level. Visualized retroperitoneum and paraspinal soft tissues: There is a 1.9 cm right renal cyst Vertebral levels: L5-S1: There is an asymmetric to the left disc osteophyte complex with facet hypertrophy inducing mil d left neural foraminal narrowing which appears stable to the prior exam. L4-5: There is a broad-based disc osteophyte complex with facet hypertrophy inducing mild bilateral n eural foraminal narrowing, left greater than right L3-4: There is a broad-based disc bulges ligamentum flavum hypertrophy and facet hypertrophy inducing mild central canal narrowing with moderate bilateral neural foraminal narrowing which is stable to the prior exam. L2-3: There is a broad-based bulge without appreciable central canal or neural foraminal narrowing. L1-L2: No appreciable central canal or neuroforaminal narrowing. T12-L1: No appreciable central canal or neuroforaminal narrowing. Postcontrast series: No abnormal enhancement demonstrated. IMPRESSION: 1. Postoperative lumbar spine. No definite abnormal enhancement to suggest presence of postlaminectom y syndrome. 2. Stable multilevel neural foraminal narrowing as above. This is most pronounced at L3-4 where there is moderate bilateral neural foraminal narrowing with mild central canal narrowing. 3. Right renal cyst.
== END 2020-05-20 12:18 | disposition home or self-care (01) ==
LOC: BICMRI 12:17
PROVIDERS: ATTEND Nurse Practitioner Family
DX: M96.1 Postlaminectomy syndrome, not elsewhere classified (principal); M48.061 Spinal stenosis, lumbar region without neurogenic claudication; N28.1 Cyst of kidney, acquired; Z98.890 Other specified postprocedural states
CPT/HCPCS: 72158; A9579

== ENCOUNTER 2020-08-29 10:29 | Outpatient (CLI) | payer OTHER ==
[2020-08-29 22:34] LABS: SARS-CoV-2 PCR by NAA Not Detected (NotDetected)
== END 2020-08-29 10:30 | disposition home or self-care (01) ==
LOC: LABBT 10:29
PROVIDERS: ATTEND Specialist
DX: Z01.812 Encounter for preprocedural laboratory examination (principal); M54.16 Radiculopathy, lumbar region; M96.1 Postlaminectomy syndrome, not elsewhere classified; G89.4 Chronic pain syndrome; Z20.822 Contact with and (suspected) exposure to COVID-19
CPT/HCPCS: 87635; U0003; U0005

== ENCOUNTER 2020-09-03 10:24 | Day surgery (SDC) | payer OTHER ==
[2020-08-30 12:47] VITALS: BMI 28.5
[2020-09-03] MEDS ORDERED: Fentanyl 100 MCG/2 ML VIAL ONE ×3 (11:38→13:35)
[2020-09-03] MEDS ORDERED: Midazolam HCl 2 mg/2 ml Vial ONE ×2 (11:38→12:33)
[2020-09-03] MEDS ORDERED: EPINEPHrine 1 MG/ML AMP ONE ×3 (12:07→13:31)
[2020-09-03] MEDS ORDERED: Bupivacaine PF 0.5% 30 ML VIAL ONE ×3 (12:07→13:31)
[2020-09-03] MEDS ORDERED: Propofol 1,000 MG/100 ML VIAL IV ONE (12:33)
[2020-09-03] MEDS ORDERED: PROPOFOL 200 MG/20 ML VIAL ONE (12:47)
[2020-09-03] MEDS ORDERED: HYDROcodone/Acetaminophen 5/325 mg Tablet ONE (15:40)
== END 2020-09-03 16:17 | disposition home or self-care (01) ==
LOC: SDC 10:24
PROVIDERS: ATTEND Specialist
PROC: 0JH70BZ Insertion of Single Array Stimulator Generator into Back Subcutaneous Tissue and Fascia, Open Approach (ICD-10-PCS; principal; 2020-09-03)
PROC: 00HU0MZ Insertion of Neurostimulator Lead into Spinal Canal, Open Approach (ICD-10-PCS; principal; 2020-09-03)
DX: M96.1 Postlaminectomy syndrome, not elsewhere classified (principal); G89.4 Chronic pain syndrome; M54.16 Radiculopathy, lumbar region; M46.1 Sacroiliitis, not elsewhere classified; M48.061 Spinal stenosis, lumbar region without neurogenic claudication; Z79.891 Long term (current) use of opiate analgesic; Z79.899 Other long term (current) drug therapy
CPT/HCPCS: 72020; 76000; 93005; 93010; C1778; C1787; J0171; J0690; J2250; J2704; J3010; L8687; L8689; S0020

== ENCOUNTER 2020-10-23 10:07 | Outpatient (CLI) | payer OTHER, MEDICAID | END 2020-10-23 10:08 | disposition home or self-care (01) | LOC: BICRAD 10:07 | PROVIDERS: ATTEND Specialist | DX: M96.1 Postlaminectomy syndrome, not elsewhere classified (principal); M46.1 Sacroiliitis, not elsewhere classified; M54.16 Radiculopathy, lumbar region; M47.818 Spondylosis without myelopathy or radiculopathy, sacral and sacrococcygeal region; Z98.890 Other specified postprocedural states | CPT/HCPCS: 72110; 72220 ==

== ENCOUNTER 2021-04-10 11:47 | Outpatient (CLI) | payer OTHER | END 2021-04-10 11:48 | disposition home or self-care (01) | LOC: MRI 11:47 | PROVIDERS: ATTEND Nurse Practitioner Family | DX: M47.26 Other spondylosis with radiculopathy, lumbar region (principal); Z98.890 Other specified postprocedural states | CPT/HCPCS: 72148 ==